=== PATIENT | male | born 1990 | race Caucasian/White ===

== ENCOUNTER 2020-03-30 02:04 | Emergency (ER) | payer MEDICAID ==
[~2020-03-30] VITALS: Ht 172.7 cm; Wt 81.6 kg
--- NOTE | 2020-03-30 02:19 | NUR ---
Patient to ER bed 4 to gown for evaluation. Side rails up.
[2020-03-30 02:20] VITALS: BP_SYST 190
--- NOTE | 2020-03-30 02:20 | NUR ---
PT AAO AND AMBULATORY REPORTING HEADACHE FROM HIGH BLOOD PRESSURE. BP CURRENTLY 190/128 AND H/A PAIN IS 5/10.
--- NOTE | 2020-03-30 02:40 | NUR ---
ER Dr. TERRY at bedside examining patient.
[2020-03-30] MEDS ORDERED: cloNIDine HCL 0.1 MG TABLET ONE (03:15)
[2020-03-30] MEDS: SULFAMETHOXAZOLE/TRIMETHOPR DS 1 TABLET PO ONE (03:17)
[2020-03-30] MEDS: cloNIDine HCL 0.1 MG TABLET PO ONE (03:18)
--- NOTE | 2020-03-30 03:55 | NUR ---
PT BP IMPROVED NOW 155/86 AND PT HEADACHE IMPROVED
--- NOTE | 2020-03-30 04:02 | NUR ---
REPORT GIVEN TO JESSICA WESLEY
[2020-03-30 04:49] VITALS: BP_SYST 118
--- NOTE | 2020-03-30 04:49 | NUR ---
Patient given written and verbal discharge instructions and verbalizes understanding. ER MD discussed with patient the results and treatment provided. Patient in stable condition. ID arm band removed. Rx of Bactrim DS given. Patient educated on pain management and to follow up with PMD. Pain Scale 0/10. Opportunity for questions provided and answered. Medication side effect fact sheet provided.
== END 2020-03-30 04:49 | disposition home or self-care (01) ==
LOC: SED 02:04
DX: L03.311 Cellulitis of abdominal wall (principal); I10 Essential (primary) hypertension; R51.9 Headache, unspecified; F17.200 Nicotine dependence, unspecified, uncomplicated; F12.90 Cannabis use, unspecified, uncomplicated
CPT/HCPCS: 93005; 99283